=== PATIENT | female | born 2005 ===

== ENCOUNTER 2025-05-31 09:59 | Outpatient (REF) | payer OTHER, SELFPAY ==
--- NOTE | ~2025-05-31 | US_ITS ---
EXAMINATION: US PELVIS CLINICAL INFORMATION: Left-sided pelvic pain. COMPARISON: None available. TECHNIQUE: Ultrasound of the pelvis is performed using both transabdominal and transvaginal transducers along with Doppler. Transvaginal imaging is performed due to inadequate visualization transabdominally. FINDINGS: Uterus: The uterus is anteversion flexion and measures 8 x 3 x 4 cm. Volume: 55 cc. The double wall endometrial thickness is 5 mm. There is an intrauterine contraceptive device in place extending from the fundus to the body. The cervix is closed no gross uterine fibroid. Adnexa: The ovaries are identified with flow on color Doppler interrogation.. No gross solid or cystic lesion. No free fluid in the cul-de-sac. Right ovary measures 4 x 2 x 3 cm. Volume: 11 cc. Left ovary measures 4 x 3 x 4 cm. Volume: 22 cc. US/US pelvic and transvaginal IMPRESSION: No ovarian torsion. No solid or cystic lesion, ovaries. Intrauterine contraceptive device in satisfactory position. No gross uterine fibroid. Electronically signed by: Polo Bartlett MD 05/31/2025 02:17 PM KARSTEN
--- OUTSIDE RECORDS SUMMARY | 2025-05-31 11:17 | XMS_ITS | Encounter Summary ---
Author Organization [facility] Address [address] [facility] [address] [place] [address] Phone Care Team Providers Care Carton Machine Operator Name Role Phone Madison Buck MD Unavailable [phone] Tamra Galaviz CNP Primary Care Provider [phone] Encounter Details Date Type Department Care Team (Late st Contact Info) Description 12/07/2024 Procedure Pass [facility] Emergency Radiology, Main [place] [address] [place] [address], Floor 1 [place] [address] Social History Tobacco Use Types Packs/Day Years Used Date Smoking Tobacco: Never Smokeless Tobacco: Never Alcohol Use Standard Drinks/Week Comments No 0 (1 standard drink = 0.6 oz pur e alcohol) Education Answer Date Recorded Are you interested in more education? Not on vasiliy e 10/24/2022 Are you concerned about learning? Not on file 10/24/2022 No 10/24/2022 No 10/24/2022 Food Answer Date Recorded Within the past 6 months we worried whether our food would run out before we got money to buy more. Never True 11/29/2024 Within the past 6 months the food we bought just didn't last and we didn't have enough money to get more. Never True Residential Stability Answer Date Recor ded What is your housing situation today? I have mary lou sing 11/29/2024 How many times have you move d in the past 12 months? Zero (I did not move) 11/29/2024 Paying for Meds Answer Date Recorded Do you have trouble paying for medicines? No 11/29/2024 Paying Utility Bills Answer Date Record ed Do you have trouble paying your heating or elect ricity bill? No 11/29/2024 Transportation Answer Date Recorded Has the lack of transportati on kept you from medical appointments or from getting medications? No 11/29/2024 Digital Access Answer Date Recorded No 11/29/2024 Yes 11/29/2024 Do you have reliable internet access at home? Ye s 11/29/2024 Do you have a device (e.g., phone, tablet, computer) with a working camera? Yes 11/29/2024 Intimate Partner Violence Answer Date R ecorded Are you denied basic needs s uch as food, clothing, or medical care? No 12/07/2024 In the past 12 months have y ou been in a relationship with a person who hurts, threatens, or tries to control you? No 12/07/2024 Are you denied basic needs s uch as food, clothing, or medical care? No 12/07/2024 In the past 12 months have y ou been in a relationship with a person who hurts, threatens, or tries to control you? No 12/07/2024 Comments No Sex and Gender Information Value Date Recorded Sex Assigned at Female 03/24/2024 5:38 PM EDT Legal Sex Female 7:44 PM EST Gender Identity Female 03/24/2024 5:38 PM EDT Sexual Orientation Straight 03/24/2024 5: 38 PM EDT documented as of this encounter Functional Status * Calculated C-SSRS Risk Score (Lifetime/Recent) Answer Date of Assessment Author No Risk Indicated 12/07/2024 11:28 AM EDT Johan Huggins, PANCHITO * Alviso Suicide Severity Rating Scale (Screener/Recent Self-Report) Question Answer Date of Assessment Author 1. Wish to be (Past 1 Month) No 025 11:28 AM EDT Johan Huggins, PANCHITO 2. Non-Specific Active Suici michael Thoughts (Past 1 Month) No 12/07/2024 11:28 AM EDT Johan Huggins , PANCHITO 6. Suicidal Behavior (Lifetime) No 11:28 AM EDT Johan Huggins, RN documented as of this encounter Plan of Treatment Upcoming Encounters Date Type Department Care Team (Late st Contact Info) Description 06/14/2025 10:00 AM EST Telemedicine [facility] [address] [facility], 8th Floor [address] [place] [address] Jairo Grande MD, PhD [address] [place] [address] [address] [place] [phone] [email or web address] documented as of this encounter Visit Diagnoses Not on filedocumented in this encounter Additional Health Concerns Assessment Noted Time PHQ-2 Depression Total Score: 0 06/20/20 3:46 PM EST documented as of this encounter Care Teams Carton Machine Operator Relationship Specialty Start Date End Date Tamra Galaviz CNP [address] [address] [email or web address] PCP - General Nurse Practitioner 11/04/24 Madison Buck MD [address] [address] [email or web address] Gynecology 01/28/23 documented as of this encounter Additional Source Comments The information contained in this document represents components of the legal health record. It is not the complete legal health record.[facility]
--- OUTSIDE RECORDS SUMMARY | 2025-05-31 11:17 | XMS_ITS | Encounter Summary ---
Author Organization [facility] Address [address] [facility] [address] [place] [address] Phone Care Team Providers Care Pet Adoption Counselor Name Role Phone Madison Buck MD Unavailable Tamra Galaviz CNP Primary Care Provider [phone] Encounter Details Date Type Department Care Team (Late st Contact Info) Description 12/18/2024 Transcribe Orders Virtual Department [address] [place] [address] Luz Maria Verde, DO [address] [place] [address] [email or web address] Anterograde amnesia (Primary Dx) Social History Tobacco Use Types Packs/Day Years [...] housing situation today? I have mary lou arauz 11/29/2024 How many times have you move [...] PM EDT documented as of this encounter Plan of Treatment Upcoming Encounters Date Type Department Care Team (Late st Contact Info) Description 06/14/2025 10:00 AM EST Telemedicine [facility] General Neurology [address] [place] [address], 8th Floor [address] [place] [address] Jairo Grande MD, PhD [address] [place] [phone] [email or web address] documented as of this encounter Visit Diagnoses Diagnosis Anterograde amnesia- Primary Memory loss documented in this encounter Additional Health Concerns Assessment Noted Time PHQ-2 Depression Total Score: 0 06/20/20 3:46 PM EST documented as of this encounter Care Teams Pet Adoption Counselor Relationship Specialty Start Date End Date Tamra Galaviz CNP [address] [address] [email or web address] PCP - General Nurse Practitioner 11/04/24 Madison Buck MD [address] [address] [email or web address] Gynecology 01/28/23 documented as of this encounter Additional Source Comments The information contained in this document represents components of the legal health record. It is not the complete legal health record.[facility]
--- OUTSIDE RECORDS SUMMARY | 2025-05-31 11:17 | XMS_ITS | Clinical Summary ---
Author Organization [facility] Address [address] [address] Phone Care Team Providers Care Ad Operations Coordinator Name Role Phone Madison Buck MD Unavailable [phone] Tamra Galaviz CNP Primary Care Provider [phone] Allergies Active Allergy Reactions Criticality Noted Date Comments Lamotrigine Rash Low 06/28/2020 Medications escitalopram oxalate (LEXAPRO) 10 MG tablet Take 10 mg by mouth daily. 08/21/2021 Active dextroamphetami ne-amphetamine (ADDERALL XR) 30 MG 24 hr capsule Take 30 mg by mouth every morning. 05/28/2023 Active lurasidone (LATUDA) 40 mg tablet Take 40 mg by mouth daily with dinner. 05/30/2023 Active traZODone (DESYREL) 50 MG tablet Take 1 tablet (50 mg total) by mouth nightly at bedtime. 7 tablet 03/24/2024 Active metoclopramide HCl (REGLAN) 5 MG tablet Take 1 tablet (5 mg total) by mouth daily as needed (migraine/he adache). 10 tablet 1 12/29/2024 Active magnesium oxide (MAG-OX) 400 mg (241.3 mg elemental) tablet Take 1 tablet (400 mg total) by mouth daily. 90 tablet 1 12/29/2024 Active riboflavin, vitamin B2, (,VITAMIN B-2,) 100 mg Tab Take 1 tablet (100 mg total) by mouth daily. 90 tablet 1 12/29/2024 5 Active Active Problems Problem Noted Date Diagnosed Date Headache 12/07/2024 Gastrointestinal complaints 11/19/2023 Assessment & Plan (11/19/2023 11:08 PM EDT): This has been an ongoing problem for the past year. It seems to be perhaps related to foods. She did get a preliminary workup done at [facility] her [facility]. They did some autoimmune labs, which were largely negative, ERIKA, Lyme, celiac testing. She was treated for Blastocystitis, with Flagyl last year, which seemed to somewhat help her symptoms, but she continues to experience some of this bloating. I advise to keep a food diary to see if we can identify certain triggers that may be contributing to her ailments. I think the differential diagnosis could include IBS, endometriosis, SIBO, anxiety/stress. We're going to do a blood workup as well as stool studies to see if we can identify any modifiable issues. If all the workup is negative, I'm going to have her start a probiotic and follow up with Gastroenterology. Patient understands, agrees to plan. Anxiety and depression 06/20/2023 Overview (06/20/2023): Followed by psych, Dr. Mcghee, every 2 months for depression, anxiety, and PTSD Followed by therapy once weekly Taking latuda 40 mg daily and lexapro 10 mg daily Denies SI or HI Assessment & Plan (11/19/2023 11:08 PM EDT): She does have known anxiety and depression. She follows with a psychiatrist. She takes medication for this, Lexapro and Latuda. Will defer management of this condition to Psychiatry. Assessment & Plan (06/20/2023 3:36 PM EST): Stable Continue latuda and lexapro Follow-up with psych Attention deficit hyperactivity disorder (ADHD) 06/20/2023 Overview (06/20/2023): Taking adderall 30 mg ER daily Followed by psych Assessment & Plan (11/19/2023 11:08 PM EDT): She does have ADHD. She follows with psychiatry. She's on Adderall. Will defer management of this condition to Psychiatry. Assessment & Plan (06/20/2023 4:02 PM EST): Stable Continue adderall Follow-up with psych Healthcare maintenance 06/20/2023 Overview (06/20/2023): Nuvaring for contraception Assessment & Plan (06/20/2023 3:42 PM EST): Ordered STI screening Overweight (BMI 25.0-29.9) 06/20/2023 Assessment & Plan (06/20/2023 3:45 PM EST): Encouraged exercise and healthy diet Enlarged tonsils 06/20/2023 Overview (06/20/2023): Reports that she has history of enlarged tonsils, recurrent strep infections and tonsil stones, snores at night She would like further eval to consider tonsillectomy Assessment & Plan (06/20/2023 3:48 PM EST): 2+ enlarged tonsils on exam Referred to ENT for further eval Breast hypertrophy 06/20/2023 Chronic upper back pain 06/20/2023 Overview (06/20/2023): Chronic due to enlarged breasts Does not want a breast reduction No associated numbness or weakness Assessment & Plan (06/20/2023 3:59 PM EST): Referred to PT Can take tylenol or ibuprofen as needed Call clinic if no improvement with PT Irregular menses 09/19/2021 Overview (06/20/2023): Followed by [facility] Using nuvaring Assessment & Plan (11/19/2023 11:08 PM EDT): She does have irregular menses. She was previously being followed by Gynecology. She has control with NuvaRing. She is sexually active with one male partner, and she feels safe with him. They also use condoms. Assessment & Plan (06/20/2023 3:40 PM EST): Stable Continue nuva ring Migraine without aura and wi thout status migrainosus, not intractable 08/03/2019 Overview (06/20/2023): Chronic, intermittent Pain in front and behind eyes, feels pressure in her head Occasional vomiting with more severe episodes Occur 2-3 x week Takes excedrin and caffeine with relief Since age 7 Assessment & Plan (06/20/2023 3:40 PM EST): Stable Patient reports headaches are currently well controlled with excedrin Continue excedrin as needed along with healthy diet, exercise, and adequate sleep Consider referral to neurology if with increase in frequency and severity of headaches Declines medication management for prophylaxis at this time Resolved Problems Problem Noted Date Diagnosed Date Resolved Date Depressive disorder 06/20/2023 06/20/20 Major depressive disorder wi th single episode, in partial remission 09/19/2021 06/20/2023 Overview (06/20/2023): Depression and anxiety admitted [facility] 11/23- 12/08/20 // dr jorden moser Therapy-miguel Dr mcghee for meds OCD (obsessive compulsive disorder) 05/07/2018 06/20/2023 Overview (06/20/2023): Dr Mcghee [place] Therapist elvin matt Virtual 2 years Immunizations Immunization Administration Dates Next Due COVID-19 (Pre-04/21) Pfizer Vaccine, mRNA, PF 11/10/2020 COVID-19, Unspecified Formulation 07/06/2021,03/2021 DTaP 03/31/2009, 6,07/09/2005,05/07,03/08/2005 [id number] FORMULATION 06/14/2009 HPV, unspecified formulation 05/02/2017,04/30/20 16,07/17/2015 HPV,quadrivalent 04/04/2015 Hepatitis A, ped/adol, 2 dose 06/28/2020, 019 Hepatitis B, unspecified formulation 03/2006,07/09/2005,02/01/2005,02/01,2004,2004 Hib,HbOC 04/09/2006, 6,05/07/2005,03/08 Hib,PRP-T 04/09/2006, 6,05/07/2005,03/08 IPV 03/31/2009, 6,05/07/2005,03/08 Influenza Quadrivalent Intranasal 05/25/2019 Influenza Quadrivalent MDCK Preservative Free IM 04/08/2022,03/17/2020 Influenza Quadrivalent Prese rvative Free IM 06/20/2023,09/19/2021,05/14/2020 Influenza, Unspecified Formulation 09/19,03/16/2020,05/25/2019,05/25,05/07/2018,05/07/2018,05/07/2018 ,05/02/2017,05/02/2017,04/30/2016,06/2015,04/04/2015,04/04/2015, 4,04/01/2014,03/29/2013,03/29/2013,07/2011,03/31/2012,04/05/2011,04/05/20 11,04/05/2010,04/05/2010,03/31/2009, MMR 03/31/2009,04/09/2006 Meningococcal MCV4, unspecif ied Formulation 09/19/2021 Meningococcal MCV4O 05/02/2017 Meningococcal MCV4P 09/19/2021 Pneumococcal conjugate, unsp ecified formulation 04/09/2006,07/09/2005,05/07/2005,03/08 Tdap 04/04/2015 Varicella 03/31/2009,04/09/2006 Family History Medical History Relation Comments Skin cancer Father Throat cancer Father Diabetes mellitus Mother Skin cancer Mother Relation Status Comments Father Mother Social History Tobacco Use Types Packs/Day Years Used Date Smoking Tobacco: Never Smokeless Tobacco: Never Tobacco Cessation:Counseling Given: Not Answered Alcohol Use Standard Drinks/Week Comments No 0 [...] Orientation Straight 03/24/2024 5: 38 PM EDT Last Filed Vital Signs Vital Sign Reading Time Taken Comments Blood Pressure 118/56 12/08/2024 9:40 AM EDT Pulse 85 12/08/2024 9:40 AM EDT Temperature 36.3 C (97.4 F) 12/08/2024 9:40 AM EDT Respiratory Rate 16 12/08/2024 9:40 AM EDT Oxygen Saturation 98% 12/08/2024 9:40 AM EDT Inhaled Oxygen Concentration - - Weight 95.3 kg (210 lb) 12/07/2024 11:28 AM EDT Height 170.2 cm (5' 7 ) 12/07/2024 11:28 AM EDT Body Mass Index 32.89 12/07/2024 11:28 AM EDT Plan of Treatment Upcoming Encounters Date Type Department Care Team (Late st Contact Info) Description 06/14/2025 10:00 AM EST Telemedicine [facility] [address] [place] [address], 8th Floor [address] [place] [id number] Jairo Grande MD, PhD [address] [place] [phone] [email or web address] Health Maintenance Due Date Last Done Comments MENINGOCOCCAL VACCINES (B) (1 of 2 - Standard) 2020 ADOLESCENT UNIVERSAL LIPID SCREENING 2021 05/25/2021 CHLAMYDIA SCREENING 06/20/2024 06/20/2023 INFLUENZA VACCINE (#1) 2025 , 04/08/2022, 09/19/2021, Additional history exists REPEAT PHQ 01/28/2025 12/28/2024, 12/28/2024 COVID-19 VACCINE ( season) 2025 04/08/2022, 07/06/2021, 07/06/2021, Additional history exists COMBINED DTaP,Tdap,Td (7 - Td or Tdap) 04/04/2025 04/04/2015, 03/31/2009, 04/09/2006, Additional history exists SMOKING Hx and SMOKELESS TOBACCO SCREENING 11/29/2025 11/29/2024 DEPRESSION SCREENING 12/28/2025 12/28/2024, 12/29/19 25 DEVELOPMENTAL/BEHAVIORAL SCREENING (PHQ, PSC, or SWYC) 12/28/2025 12/28/2024, 12/28/2024 HIB VACCINES Completed 04/09/2006, 03/30, 07/09/2005, Additional history exists PNEUMOCOCCAL VACCINES (0-49 years) Aged Out 04/09/2006, 07/09/2005, 05/07/2005, Additional history exists No longer eligible based on patient's age to complete this topic IPV VACCINES Completed 03/31/2009, 06/30, 05/07/2005, Additional history exists MMR VACCINES Completed 03/31/2009, 04/09/2006 VARICELLA VACCINES Completed 03/31/2009, 04/09/2006 HPV VACCINES Completed 05/02/2017, 06/2015, 07/17/2015, Additional history exists HEPATITIS A VACCINES Completed 06/28/2020, 05/25/20 19 MENINGOCOCCAL VACCINES (ACWY) Completed 09/19/2021, 09/19/2021, 05/02/2017 HEPATITIS C SCREENING Completed 06/20/2023 HIV ONE-TIME SCREENING (18-65 YEARS) Completed 06/20/2023 Medical Devices Implanted Type Area Gag Writer Device Identifier Shelf Expiration Date Model / Serial / Lot Nuva Ring Procedures Procedure Name Priority Date/Time Associated Diagnosis Comments CHLAMYDIA TRACHOMATIS AND NEISSERIA GONORRHOEAE NUCLEIC ACID DETECTION Routine 06/20/2023 4:08 PM EST Healthcare maintenance HEPATITIS C ANTIBODY, QUALITATIVE Routine 06/20/2023 4:02 PM EST Need for hepatitis C screening test from Last 3 Months or Most Recently Relevant to Health Maintenance Results * Chlamydia Trachomatis and Neisseria Gonorrhoeae Nucleic Acid Detection (06/20/2023 4:08 PM EST) Specimen Type URINE [facility] C.TRACHOMATIS, AMP Negative Negative [facility] N.Gonorrhoeae, AMP Negative Negative [facility] Urine 06/20/2023 4:08 PM EST 06/20/2023 5:04 PM EST us Toshia Peace MD LAB GENERAL ORDERABLES Final Res ult Performing Organization Address [facility]/ZIP Co de Phone Number [facility] [address] [place] [address] * Hepatitis C antibody, qualitative (06/20/2023 4:02 PM EST) HCV ANTIBODY Negative Negative [facility] Comment:Test Methodology Vance he [id number] 06/20/2023 4:02 PM EST 06/20/2023 5:00 PM EST us Toshia Peace MD LAB BLOOD BKR ORDERABLES Final R esult Performing Organization Address [facility] Co de Phone Number [facility] [address] [place] [address] from Last 3 Months or Most Recently Relevant to Health Maintenance Insurance O Care Teams Ad Operations Coordinator Relationship Specialty Start Date End Date Tamra Galaviz CNP [address] [address] [email or web address] PCP - General Nurse Practitioner 11/04/24 Madison Buck MD 1999 [facility] [address] [place] [address] [email or web address] Gynecology 01/28/23 Additional Source Comments The information contained in this document represents components of the legal health record. It is not the complete legal health record.[facility]
--- OUTSIDE RECORDS SUMMARY | 2025-05-31 11:17 | XMS_ITS | Encounter Summary ---
Author Organization [facility] Address [address] [facility] [address] [place] [address] Phone Care Team Providers Care Regulator Operator Name Role Phone Madison Bcuk MD Unavailable Toshia Peace MD Primary Care Provider Isidoro Carter MD Unavailable Monica Marrufo DO Unavailable [phone] Pcp, Unknown Primary Care Provider Unavailabl e Tamra Galaviz CHRONOMETER REPAIRER Primary Care Provider Encounter Details Date Type Department Care Team (Late st Contact Info) Description 11/19/2023 Transcribe Orders [facility] [address] [place] [address] Sammy Napier [address] [place] [phone] [email or web address] Social History Tobacco Use Types Packs/Day Years Used Date Smoking Tobacco: Never Smokeless Tobacco: Never Alcohol Use Standard Drinks/Week Comments No 0 (1 standard drink = 0.6 oz pur e alcohol) Education Answer Date Recorded Are you interested in more education? Not on vasiliy e 10/24/2022 Are you concerned about learning? Not on file 10/24/2022 No 10/24/2022 No 10/24/2022 Digital Access Answer Date Recorded No 11/23/2022 No 11/23/2022 Reliable internet access at home? Not on file 11/23/2022 Device with a working camera? Not on file Comments No Sex and Gender Information Value Date Recorded Sex Assigned at Female 03/24/2024 5:38 PM EDT Legal Sex Female 7:44 PM EST Gender Identity Female 03/24/2024 5:38 PM EDT Sexual Orientation Straight 03/24/2024 5: 38 PM EDT documented as of this encounter Plan of Treatment Upcoming Encounters Date Type Department Care Team ([facility] st Contact Info) Description 06/14/2025 10:00 AM EST Telemedicine [facility] [address] [place] [address], 8th Floor [address] [place] [address] Jairo Grande MD, PhD [address] [place] [address] [place] [phone] [email or web address] documented as of this encounter Visit Diagnoses Not on filedocumented in this encounter Additional Health Concerns Assessment Noted Time PHQ-2 Depression Total Score: 0 06/20/20 3:46 PM EST documented as of this encounter Care Teams Regulator Operator Relationship Specialty Start Date End Date Toshia Peace MD [address] [facility] [address] [place] [address] PCP - General Family Medicine 06/20/23 03/23/24 Pcp, Unknown PCP - General 03/24/24 11/03/24 Tamra Galaviz, CHRONOMETER REPAIRER PCP - General Nurse Practitioner 11/04/24 Madison Buck MD [address] [address] Gynecology 01/28/23 Isidoro Carter MD [address] [place] [phone] [email or web address] Insurance Assigned Provider 12/06/23 01/03/24 Moniac Marrufo DO [address] [place] [phone] [email or web address] Insurance Assigned Provider 01/03/24 07/05/24 documented as of this encounter Additional Source Comments The information contained in this document represents components of the legal health record. It is not the complete legal health record.[facility]
== END 2025-05-31 10:00 | disposition home or self-care (01) ==
LOC: HO.UMASIMG 09:59
PROVIDERS: Visit Provider Family Medicine
DX: R10.22 Pelvic and perineal pain left side (principal)
CPT/HCPCS: 76830; 76856

== ENCOUNTER → 2025-05-31 13:29 | Outpatient (BNV) | payer OTHER, SELFPAY | PROVIDERS: Visit Provider Radiology Diagnostic Radiology | DX: R10.22 Pelvic and perineal pain left side (principal) | CPT/HCPCS: 76830; 76856 ==